=== PATIENT | male | born 1985 | race Caucasian/White ===

== ENCOUNTER 2017-02-16 11:51 | Emergency (ER) | payer SELFPAY ==
--- NOTE | 2017-02-16 12:14 | Emergency Department Record ---
History of Present Illness - General Chief Complaint: Back Pain/Injury Stated Complaint: BACK INJURY Time Seen by Provider: 02/16/17 12:13 Source: Patient Mode of Arrival: Ambulatory Limitations: No limitations - History of Present Illness Initial Comments: The patient is here due to low back pain for the last 3 days. He was on a roof with a heavy work belt on when he bent over and felt pain in his low back. He did not fall or suffer any trauma.The pain was mild at first and slowly worsened as he kept working during the day. The pain has been moderate to severe at times and is located in the low back on both sides. It intermittently radiates to his legs but he has had no leg numbness, weakness, or any bowel or bladder incontinence or inability to go. The pain is MUCH worse with any movement or bending or twisting. The patient has no hx of any back issues or disc problems. MD Complaint: Back pain Onset/Timin -: Days(s) Similar Symptoms Previously: No Place: Home Radiation: Left leg, Right leg Severity: Moderate Severity scale (1-10): 5 Consistency: Intermittent Improves With: None Worsens With: Movement, Walking Context: Bending Associated Symptoms: Denies other symptoms - Related Data Previous Rx's Medication Instructions Recorded Cyclobenzaprine HCl [Flexeril] 10 mg PO TID PRN #20 tablet 02/16/17 Naproxen [Naprosyn] 500 mg PO BID #14 tablet. 02/16/17 Allergies Allergy/AdvReac Type Severity Reaction Status Date / Time No Known Drug Allergies Allergy Verified 02/16/17 12:09 Travel Screening - Travel/Exposure Within Last 30 Days Have you traveled within the last 30 days?: No Review of Systems Constitutional: Denies: Chills, Fever Eyes: Denies: Eye discharge ENT: Denies: Congestion Respiratory: Denies: Cough, Dyspnea Past Medical History - SOCIAL HISTORY Smoking Status: Never smoker Alcohol Use: None Drug Use: None - RESPIRATORY Hx Respiratory Disorders: No - CARDIOVASCULAR Hx Cardio Disorders: No - NEURO Hx Neuro Disorders: No - GI Hx GI Disorders: No - Hx Genitourinary Disorders: No - ENDOCRINE Hx Endocrine Disorders: No - MUSCULOSKELETAL Hx Musculoskeletal Disorders: No - PSYCH Hx Psych Problems: No - HEMATOLOGY/ONCOLOGY Hx Hematology/Oncology Disorders: No Family Medical History Any Significant Family History?: No Physical Exam - General General Appearance: Alert, Oriented x3, Cooperative, No acute distress - Head Head exam: Atraumatic, Normocephalic, Normal inspection - Eye Eye exam: Normal appearance, PERRL - Neck Neck exam: Normal inspection, Full ROM. negative: Tenderness - Respiratory Respiratory exam: Normal lung sounds bilaterally. negative: Respiratory distress - Cardiovascular Cardiovascular Exam: Regular rate, Normal rhythm, Normal heart sounds - GI/Abdominal GI/Abdominal exam: Soft, Normal bowel sounds. negative: Tenderness - Rectal Rectal exam: Normal rectal tone. negative: Decreased rectal tone - Extremities Extremities exam: Normal inspection, Full ROM, Normal capillary refill. negative: Tenderness - Back Back exam: Reports: Normal inspection, Other (Neg SLR bilaterally.). Denies: Paraspinal tenderness, Vertebral tenderness - Neurological Neurological exam: Abnormal gait (due to pain but the patient is able to walk.) , Alert, Oriented X3, Reflexes normal (The patellar and achilles reflexes are 2 + and equal bilaterally.). negative: Altered, Motor sensory deficit (Motor and sensory are intact to the lower extremities with pain and are 5/5 bilaterally.) , Normal gait - Psychiatric Psychiatric exam: negative: Anxious, Depressed Course Vital Signs 02/16/17 12:06 Temperature 98.5 F Pulse Rate 95 H Respiratory 20 Rate Blood Pressure 120/87 Pulse Ox 96 - Reevaluation(s) Reevaluation #1: The patient is doing MUCH better at this time. His pain laying down has completely resolved but he is still having some mild pain with movement. The patient is able to get up and walk with no real difficulty and has no leg numbness, or weakness. He is able to walk on his toes and heels with only minimal pain. The patient's back has much less spasm present and he feels ready for home. 02/16/17 13:29 Disposition Disposition: Discharge Clinical Impression: Lumbar paraspinal muscle spasm Disposition: Home, Self-Care Condition: (1) Good Instructions: Low Back Strain (ED) Additional Instructions: Rest when possible and take the Naprosyn and Flexeril as directed. You may use the [facility] today if needed. Please see your PCP later this week for recheck and return to the ER for any increased pain, leg numbness, weakness, or any bowel or bladder incontinence or retention. Prescriptions: Cyclobenzaprine HCl [Flexeril] 10 mg PO TID PRN #20 tablet PRN Reason: Pain Naproxen [Naprosyn] 500 mg PO BID #14 tablet.dr Forms: Patient Portal Access Time of Disposition: 13:33 Quality - Quality Measures Quality Measures: N/A - Blood Pressure Screening View Details: Yes Does Patient Have Any of the Following: No Blood Pressure Classification: Hypertensive Reading Systolic Measurement: 123 Diastolic Measurement: 97 Screening for High Blood Pressure: < Pre-Hypertensive BP, F/U Documented > [ [id number]] Pre-Hypertensive Follow-up Interventions: Referral to alternative/primary care provider.
[2017-02-16] MEDS ORDERED: ORPHENADRINE CITRATE 60MG/2ML VIAL IM ONE (12:18)
[2017-02-16] MEDS ORDERED: KETOROLAC 30 MG/ML VIAL IM ONE (12:18)
[2017-02-16] MEDS ORDERED: MORPHINE SULFATE 5 MG/ML PFS IM ONE (13:07)
[2017-02-16] MEDS ORDERED: ONDANSETRON 4 MG ODT TABLET SL ONE (13:08)
[2017-02-16] MEDS ORDERED: HYDROCODONE/APAP 5/325MG TABLET PO ONE (13:33)
== END 2017-02-16 13:50 | disposition home or self-care (01) ==
LOC: ER 11:51
DX: M62.830 Muscle spasm of back (principal)
CPT/HCPCS: 99283 ×2; 96372; J1885; J2270; J2360